=== PATIENT | male | born 2005 | race Caucasian/White ===

== ENCOUNTER 2025-05-31 20:38 | Emergency (ER) | payer OTHER ==
[2025-05-31] MEDS: Dexamethasone 4 MG/ML SDV PO ONE (21:23)
== END 2025-05-31 21:30 | disposition home or self-care (01) ==
LOC: DL.ED 20:38
DX: J45.21 Mild intermittent asthma with (acute) exacerbation (principal); Z79.899 Other long term (current) drug therapy
CPT/HCPCS: 99284; J1100; J3535; A9270-GY